=== PATIENT | female | born 1960 | race Caucasian/White ===

== ENCOUNTER 2023-08-28 09:24 | Emergency (ER) | payer OTHER ==
--- OUTSIDE RECORDS SUMMARY | 2023-08-28 09:26 | XMS REPORT | Continuity of Care Document ---
:1960 Author Organization [facility] t Address [address] [address] Care Team Providers Name Role Phone [email or web address] Attending Clinician Unavailable HO GARCIA M.D. Attending Clinician Unavailable SERGIO BUCIO M.D. Attending Clinician Unavailable [email or web address] Admitting Clinician Unavailable Problems Condition Condition Condition Status Onset Resolution Last Treating Co mments Source Name Details Category Date Date Treatment Clinician Date Diabetes Diabetes Problem Active [facility] Fracture Fracture Problem Active [facility] of lateral of lateral Ph ysici malleolus malleolus ans Left ankle Left ankle Problem Active U T pain pain Physici ans Peroneal Peroneal Problem Active UT tendinitis tendinitis Ph [facility] ans Achilles Achilles Problem Active [facility] tendinitis tendinitis [facility] ans Plantar Plantar Problem Active UT fasciitis fasciitis Phys ici ans Stress Stress Problem Active [facility] fracture fracture Physic i of left of left ans tibia, tibia, initial initial encounter encounter Allergies, Adverse Reactions, Alerts This patient has no known allergies or adverse reactions. Social History Smoking Status Start Date Stop Date Source Never smoker [facility] Medications Ordered Filled Start Stop Current Ordering Indication Dosage Frequency Signature Comments Components Source Medication Medication Date Date Medication? Clinician (SIG) Name Name Pennsaid 2 Pennsaid 2 2019-0 Yes HO Use 2 UT % % 8-29 HADNOTT pumps, 2 Physici Transdermal Transdermal 00:00: M.D. times ans Solution Solution 00 daily Vital Signs Vital Name Observation Time Observation Value Comments Source Height 2018-06-07 14:42:00 65 [in_us] [facility] Weight 2018-06-07 14:42:00 130 [lb_av] [facility] Body Mass Index 2018-06-07 14:42:00 21.63 kg/m2 [facility] Calculated Procedures Procedure Date / Time Performed Performing Clinician Sourc e MR Foot wo contrast [id number] 2018-08-11 00:00:00 [facility] MR Ankle wo contrast [id number] 2018-08-11 00:00:00 [facility] Encounters Start End Encounter Admission Attending Care Care Encounter Source Date/Time Date/Time Type Type Clinicians Facility Department ID 2023-08-17 2023-08-17 Outpatient [email or web address] [email or web address] PRIV [id number] [facility] 00:00:00 00:00:00 diyala_S [id number] Medic al 2019-07-26 2019[facility]07[facility]26 [id number] [place] 10:45:00 10:45:00 t; celia TEAGUE [facility] and [facility] 2019-06-14 2019-06-14 [facility] [id number] [place] 11:15:00 11:15:00 t; [facility] 2018-09-01 2018-09-01 [facility]28 [id number] [place] 09:15:00 09:15:00 t; Mar [facility] elizabeth Hoskins M.D. 2018-06-07 2018-06-07 [facility] 1180 [id number] [place] 15:30:00 15:30:00 t; [facility] elizabeth Hoskins M.D. Results This patient has no known results.
--- NOTE | 2023-08-28 10:16 | RAD REPORT ---
EXAM DESCRIPTION: CT - Head Brain Wo Cont - 08/28/2023 9:58 am CLINICAL HISTORY: Headache COMPARISON: None TECHNIQUE: Computed axial tomography of the head was obtained. IV contrast was not requested. All CT scans are performed using dose optimization technique as appropriate and may include automated exposure control or mA/KV adjustment according to patient size. FINDINGS: Left parietal scalp hematoma. An intracranial bleed is not seen The ventricles are normal in caliber No extra-axial fluid collection is noted. No significant hyperdensity within the brain seen. Fluid within the sinuses/ mastoids is not seen. IMPRESSION: No acute intracranial abnormality is seen If patient's symptoms persist MRI of the brain would be recommended
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
[2023-08-28] MEDS ORDERED: TDAP (DIPHTH,PERTUSS(ACELL),TET VAC) 0.5 ML VIAL IMVAC ONE (10:39)
[2023-08-28] MEDS ORDERED: HYDROCODONE/APAP 10/325 TAB ONE (10:39)
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
[2023-08-28 11:05] VITALS: BP 158/78; TEMP 98.3; O2SAT 99
== END 2023-08-28 10:58 | disposition home or self-care (01) ==
LOC: ER 09:24
DX: S00.01XA Abrasion of scalp, initial encounter (principal); S42.022A Displaced fracture of shaft of left clavicle, initial encounter for closed fracture; S80.212A Abrasion, left knee, initial encounter; V19.9XXA Pedal cyclist (driver) (passenger) injured in unspecified traffic accident, initial encounter; Z23 Encounter for immunization
CPT/HCPCS: 70450; 90471; 99285